=== PATIENT | male | born 1950 | race African-American/Black ===

== ENCOUNTER 2024-02-29 08:57 | Outpatient (CLI) | payer MEDICARE, OTHER ==
[2024-02-29] MEDS ORDERED: Magnevist 469MG/ML 20 ML VIAL ONE (12:37)
== END 2024-02-29 08:58 | disposition home or self-care (01) ==
LOC: CSHMRI 08:57 → EDSEX 10:00
PROVIDERS: ATTEND Urology
DX: R97.20 Elevated prostate specific antigen [PSA] (principal); N40.2 Nodular prostate without lower urinary tract symptoms
CPT/HCPCS: 72197; A9579